=== PATIENT | male | born 1980 | race Hispanic/Latino ===

== ENCOUNTER → 2019-02-22 | Outpatient (CLI) | payer OTHER ==
[~2019-02-22] VITALS: Ht 188 cm; Wt 106.6 kg
[~2019-02-22] MED LIST: LANS30CA55 PO; REGADENOSON 0.4 MG/5 ML PF SYG IVP SCH; SIMV20TA6 PO; TRAM50TA4 PO; TYL3 PO
== END | disposition home or self-care (01) ==
LOC: SHCH 08:31
PROVIDERS: ATTEND Internal Medicine Cardiovascular Disease
DX: R07.9 Chest pain, unspecified (principal)
CPT/HCPCS: 78452; 93017; 96374; A9500 ×2; J2785

== ENCOUNTER → 2019-02-25 | Outpatient (CLI) | payer OTHER ==
[~2019-02-25] MED LIST changes: -REGADENOSON 0.4 MG/5 ML PF SYG IVP SCH
== END | disposition home or self-care (01) ==
LOC: SHCH 09:22
PROVIDERS: ATTEND Internal Medicine Cardiovascular Disease
DX: R07.9 Chest pain, unspecified (principal)
CPT/HCPCS: 93306

== ENCOUNTER 2019-03-08 11:54 | Day surgery (SDC) | payer OTHER ==
[2019-03-03 12:59] LABS: CREATININE 0.9 mg/dL (0.5-1.5); POTASSIUM 4.7 mmol/L (3.5-5.1)
[2019-03-03 13:01] LABS: INR 1.09 (0.85-1.15); PARTIAL THROMBOPLASTIN TIME 26.1 SEC (26.3-35.5); PROTHROMBIN TIME 11.4 SEC (9.6-11.6)
[2019-03-03 13:06] LABS: APPEARANCE,URINE Clear (CLEAR); BILIRUBIN,URINE Negative (NEGATIVE); COLOR,URINE Yellow (YELLOW); GLUCOSE, URINE (UA) Negative (NEGATIVE); KETONES,URINE Negative (NEGATIVE); LEUKOCYTE ESTERASE ,URINE Trace (NEGATIVE); NITRATE,URINE Negative (NEGATIVE); OCCULT BLOOD,URINE Negative (NEGATIVE); PH,URINE 6.5 (5.0-8.0); PROTEIN,URINE Negative (NEGATIVE)
[2019-03-03 13:10] VITALS: BP 116/72
[2019-03-03 13:16] LABS: BACTERIA,URINE Rare /HPF (None Seen); MUCUS,URINE Few LPF (None Seen); RBC,URINE 0-1 /HPF (0-1); SQUAMOUS EPITHELIAL CELL,UR Rare /HPF (0-2)
[2019-03-03 13:50] LABS: BASOPHILS % (AUTO) 1.1 % (0.0-5.0); EOSINOPHILS % (AUTO) 1.5 % (0.0-8.0); HEMATOCRIT 41.8 % (42-54); LYMPHOCYTES % (AUTO) 35.5 % (21.0-51.0); MEAN CORPUSCULAR HEMOGLOBIN 31.8 pg (27.0-33.0); MEAN CORPUSCULAR HGB CONC 33.7 g/dL (32.0-36.0); MEAN CORPUSCULAR VOLUME 94.2 fL (79-99); MONOCYTES % (AUTO) 9.5 % (3.0-13.0); NEUTROPHILS % (AUTO) 52.4 % (40.0-77.0); PLATELET COUNT (AUTO) 186 K/uL (130-400); RED BLOOD CELL COUNT(AUTO) 4.44 MIL/uL (4.50-6.20); RED CELL DISTRIBUTION WIDTH 13.3 % (11.0-15.5); WHITE BLOOD COUNT (AUTO) 5.5 K/uL (4.8-10.8)
--- NOTE | 2019-03-07 10:11 | NUR ---
MARZENA MORRIS, NOTIFIED OF ABNORMAL UA, OK TO PROCEED, NO NEW ORDERS RECEIVED.
[~2019-03-08] VITALS: Ht 193 cm; Wt 104.2 kg
[~2019-03-08 11:54] MED LIST changes: +ASPI-555 PO; -LANS30CA55 PO; +METO-408 PO; +OMEP40CA37 PO; +SODIUM CHLORIDE 0.9% 1000ML 1,000 ML IV SCH; -TRAM50TA4 PO; -TYL3 PO
[2019-03-08 12:30] VITALS: BP 130/73
[2019-03-08] MEDS ORDERED: IOHEXOL 350 MG/ML 100ML INFUS..BTL IV ONE (16:35)
[2019-03-08] MEDS ORDERED: IOHEXOL-350 50ML VIAL IV ONE (16:35)
[2019-03-08] MEDS ORDERED: MEPERIDINE-PF 25 MG/ML SYG ONE ×3 (16:35→17:17)
[2019-03-08] MEDS ORDERED: HEPARIN SODIUM 1000UNIT/ML 10ML VIAL ONE (16:35)
[2019-03-08] MEDS ORDERED: SODIUM BICARB 50MEQ 50ML VIAL ONE (16:35)
[2019-03-08] MEDS ORDERED: MIDAZOLAM HCL 1 MG/ML 2ML VIAL ONE ×3 (16:35→17:17)
[2019-03-08] MEDS ORDERED: LIDOCAINE HCL 2% 20ML ONE (16:35)
[2019-03-08] MEDS ORDERED: NITROGLYCERIN 5 MG/ML 10 ML VIAL IV ONE (16:35)
[2019-03-08] MEDS ORDERED: SODIUM CHLORIDE 0.9% 1000ML 1,000 ML IV SCH (17:28)
--- NOTE | 2019-03-08 21:30 | NUR ---
DC NOTE PATIENT ALERT AND ORIENTED, DISCHARGE TEACHING PROVIDED AND VERBALIZED UNDERSTANDING, DRESSING CLEAN DRY INTACT, TELE PACK AND IV REMOVED DRESSING APPLIED, TIP INTACT. INSTRUCTED TO MAKE FOLLOW UP APT WITH DR TUCKER IN 2 WEEKS AND TO REMOVE PRESSURE DRESSING IN 24 HRS. AT BEDSIDE, BOTH VERBALIZED UNDERSTANDING
== END 2019-03-08 20:11 | disposition home or self-care (01) ==
LOC: DAH 11:54
PROVIDERS: ATTEND Internal Medicine Cardiovascular Disease
DX: R94.39 Abnormal result of other cardiovascular function study (principal); I20.9 Angina pectoris, unspecified; Z79.82 Long term (current) use of aspirin; Z79.899 Other long term (current) drug therapy
CPT/HCPCS: 36415; 71045; 80048; 81001; 85025; 85610; 85730; 93005; 93458; A4215; A4216; A4221; A4222; A4223 ×3; A4606; C1760; C1894; J1644; J2175 ×3; J2250 ×3; J3490 ×3; Q9965; Q9967 ×2; 99156; 99157

== ENCOUNTER 2019-12-07 09:42 | Emergency (ER) | payer OTHER ==
[~2019-12-07 09:42] MED LIST changes: -ASPI-555 PO; +ASPI-556 PO; +OMEP40CA13 PO; -OMEP40CA37 PO; +SIMV-43 PO; -SIMV20TA6 PO; -SODIUM CHLORIDE 0.9% 1000ML 1,000 ML IV SCH
[2019-12-07] MEDS ORDERED: ALBUTEROL INHALER 90MCG/INH IH ONE (10:15)
[2019-12-07 11:31] LABS: RAPID GROUP A STREP NEGATIVE (NEGATIVE)
== END 2019-12-07 12:15 | disposition home or self-care (01) ==
LOC: EDH 09:42
DX: U07.1 COVID-19 (principal); R05 Cough; R50.9 Fever, unspecified; R09.81 Nasal congestion; E78.5 Hyperlipidemia, unspecified; Z90.49 Acquired absence of other specified parts of digestive tract
CPT/HCPCS: 36415; 71045; 87804 ×2; 87880; 99284; U0003

== ENCOUNTER 2019-12-09 11:07 | Emergency (ER) | payer OTHER ==
[2019-12-09 11:45] LABS: BASOPHILS % (AUTO) 0.8 % (0.0-5.0); EOSINOPHILS % (AUTO) 0.3 % (0.0-8.0); LYMPHOCYTES % (AUTO) 24.2 % (21.0-51.0); MEAN CORPUSCULAR HEMOGLOBIN 30.6 pg (27.0-33.0); MEAN CORPUSCULAR HGB CONC 33.1 g/dL (32.0-36.0); MEAN CORPUSCULAR VOLUME 92.6 fL (79-99); MONOCYTES % (AUTO) 9.9 % (3.0-13.0); NEUTROPHILS % (AUTO) 64.8 % (40.0-77.0); PLATELET COUNT (AUTO) 166 K/uL (130-400); RED BLOOD CELL COUNT(AUTO) 5.29 MIL/uL (4.50-6.20); RED CELL DISTRIBUTION WIDTH 12.5 % (11.0-15.5); WHITE BLOOD COUNT (AUTO) 3.7 K/uL (4.8-10.8)
[2019-12-09 11:53] LABS: CARBON DIOXIDE 32 mmol/L (21-32); CHLORIDE 102 mmol/L (101-111); CREATININE 1.2 mg/dL (0.5-1.5); GLOMERULAR FILTR. RATE CALC 72 mL/min (>60); GLUCOSE,RANDOM 109 mg/dL (70-105); POTASSIUM 4.3 mmol/L (3.5-5.1); SODIUM SERUM 139 mmol/L (136-145); UREA NITROGEN, BLOOD 24 mg/dL (7-18)
[2019-12-09 11:56] LABS: INR 1.12 (0.85-1.15); PARTIAL THROMBOPLASTIN TIME 27.3 SEC (26.3-35.5)
[2019-12-09 12:04] LABS: ALANINE AMINOTRANSFERASE 83 U/L (12-78); ALBUMIN 4.2 g/dL (3.5-5.0); ASPARTATE AMINOTRANSFERASE 36 U/L (10-37); BILIRUBIN,TOTAL 0.4 mg/dL (0.2-1.0); CREATINE KINASE, TOTAL 44 U/L (21-232); MYOGLOBIN 27 ng/mL (10-92); TOTAL PROTEIN, SERUM 8.2 g/dL (6.0-8.3); TROPONIN I < 0.04 ng/mL (0.00-0.06)
[2019-12-09 13:19] LABS: APPEARANCE,URINE Clear (CLEAR); BILIRUBIN,URINE Negative (NEGATIVE); COLOR,URINE Dark Yellow (YELLOW); GLUCOSE, URINE (UA) Negative (NEGATIVE); KETONES,URINE 15 mg/dL (NEGATIVE); LEUKOCYTE ESTERASE ,URINE Negative (NEGATIVE); NITRATE,URINE Negative (NEGATIVE); OCCULT BLOOD,URINE Negative (NEGATIVE); PH,URINE 5.5 (5.0-8.0); PROTEIN,URINE POS 1+ mg/dL (NEGATIVE)
[2019-12-09 13:31] LABS: BACTERIA,URINE Few /HPF (None Seen)
[2019-12-09 13:32] LABS: RBC,URINE 0-1 /HPF (0-1)
[2019-12-09] MEDS ORDERED: ALBUTEROL INHALER 90MCG/INH IH ONE (14:50)
== END 2019-12-09 14:51 | disposition home or self-care (01) ==
LOC: EDH 11:07
DX: U07.1 COVID-19 (principal); E78.00 Pure hypercholesterolemia, unspecified; K21.9 Gastro-esophageal reflux disease without esophagitis; Z87.891 Personal history of nicotine dependence
CPT/HCPCS: 36415; 71045; 80053; 81001; 82550; 83605; 83874; 84145; 84484; 85025; 85610; 85730; 87040; 87088; 93005